=== PATIENT | female | born 1990 | race Caucasian/White ===

== ENCOUNTER 2019-03-04 05:40 | Inpatient (IN) | payer OTHER ==
[~2019-03-04] VITALS: Ht 154.9 cm; Wt 77.1 kg
[2019-03-04] MEDS: LACTATED RINGERS 1,000 ML IV SCH ×2 (07:45→10:45)
[2019-03-04] MEDS ORDERED: EPIDURAL KEYS MC ONE (07:59)
[2019-03-04] MEDS ORDERED: PROMETHAZINE 25 MG/ML VIAL IVP PRN (08:00)
[2019-03-04] MEDS ORDERED: NALBUPHINE 10 MG/ML AMP IVP PRN (08:00)
--- NOTE | 2019-03-04 08:41 | NUR ---
PATIENT HAS BEEN SCREENED AND CATEGORIZED LOW NUTRITION RISK. PATIENT WILL BE SEEN WITHIN 7 DAYS OF ADMISSION. 03/10/[address]
[2019-03-04 08:42] LABS: BASOPHILS % (AUTO) 0.3 % (0.0-2.0); EOSINOPHILS % (AUTO) 0.3 % (0.0-4.0); HEMATOCRIT 40.5 % (36-48); HEMOGLOBIN 13.5 g/dL (12.0-16.0); LYMPHOCYTES # (AUTO) 2.1 K/uL (2.5-16.5); MEAN CORPUSCULAR HEMOGLOBIN 30 pg (27-31); MEAN CORPUSCULAR HGB CONC 34 g/dL (33-37); MEAN CORPUSCULAR VOLUME 89.1 fL (80-94); MONOCYTES # (AUTO) 0.7 K/uL (0.8-1.0); NEUTROPHILS # (AUTO) 9.5 K/uL (1.8-7.7); NEUTROPHILS % (AUTO) 76.4 % (42.2-75.2); PLATELET COUNT (AUTO) 149 K/uL (140-450); RED BLOOD CELL COUNT(AUTO) 4.54 MIL/uL (4.20-5.40); RED CELL DISTRIBUTION WIDTH 13.7 % (11.6-13.7); WHITE BLOOD COUNT (AUTO) 12.4 K/uL (4.8-10.8)
[2019-03-04] MEDS ORDERED: OXYTOCIN 20 UNITS/LR PREMIX 1,000 ML IV ONE (08:53)
[2019-03-04] MEDS ORDERED: LIDOCAINE 1% 500 MG/50 ML VIAL ONE (08:55)
[2019-03-04 08:58] LABS: ALBUMIN 2.7 g/dL (3.4-5.0); ANION GAP 15.5 (8-16); CARBON DIOXIDE 25.3 mmol/L (21-32); CREATININE 0.6 mg/dL (0.6-1.3); POTASSIUM 3.8 mmol/L (3.5-5.1); TOTAL BILIRUBIN 0.2 mg/dL (0.0-1.0)
[2019-03-04] MEDS ORDERED: OXYTOCIN 20 UNITS in LACTATED RINGERS 1,000 ML IV SCH ×2 (09:00→19:41)
[2019-03-04] MEDS ORDERED: OXYTOCIN 10 UNITS/ML VIAL ONE (09:04)
[2019-03-04] MEDS ORDERED: OXYTOCIN 10 UNITS/ML VIAL IM SCH (09:30)
[2019-03-04 09:33] VITALS: BP 144/71
[2019-03-04 10:11] LABS: BILIRUBIN,URINE NEGATIVE (NEGATIVE); BLOOD, URINE NEGATIVE (NEGATIVE); COLOR,URINE YELLOW (YELLOW); LEUKOCYTE ESTERASE ,URINE NEGATIVE (NEGATIVE); NITRITE, URINE NEGATIVE (NEGATIVE); PH,URINE 7.5 (5.0-9.0); UGLUCOSE NEGATIVE (NEGATIVE)
[2019-03-04 10:34] LABS: APPEARANCE,URINE SLIGHTLY HAZY (CLEAR)
[2019-03-04 10:36] LABS: RBC,URINE 0-5 /HPF (0-5); WBC,URINE 0-5 /HPF (0-5)
[2019-03-04] MEDS ORDERED: BUPIVACAINE 0.125%/NS PREMIX 250 ML ONE (11:28)
[2019-03-04] MEDS ORDERED: MEASLES, MUMPS, AND RUBELLA 1 VIAL SQVAC PRN (19:45)
[2019-03-04] MEDS ORDERED: ACETAMINOPHEN 325 MG TAB PO PRN (19:45)
[2019-03-04] MEDS ORDERED: BISACODYL 5 MG TABEC PO PRN (19:45)
[2019-03-04] MEDS ORDERED: DOCUSATE SODIUM 100 MG GELCAP PO PRN (19:45)
[2019-03-04] MEDS: IBUPROFEN 600 MG TAB PO PRN (20:58)
[2019-03-05] MEDS: IBUPROFEN 600 MG TAB PO PRN ×2 (05:13→18:06)
[2019-03-05 08:29] LABS: BASOPHILS % (AUTO) 0.3 % (0.0-2.0); EOSINOPHILS # (AUTO) 0.1 K/uL (0-0.4); EOSINOPHILS % (AUTO) 0.4 % (0.0-4.0); HEMATOCRIT 37.7 % (36-48); HEMOGLOBIN 12.4 g/dL (12.0-16.0); LYMPHOCYTES # (AUTO) 2.6 K/uL (2.5-16.5); MEAN CORPUSCULAR HEMOGLOBIN 30 pg (27-31); MEAN CORPUSCULAR HGB CONC 33 g/dL (33-37); MEAN CORPUSCULAR VOLUME 90.7 fL (80-94); MONOCYTES % (AUTO) 7.9 % (1.7-9.3); NEUTROPHILS # (AUTO) 9.4 K/uL (1.8-7.7); NEUTROPHILS % (AUTO) 71.4 % (42.2-75.2); PLATELET COUNT (AUTO) 132 K/uL (140-450); RED BLOOD CELL COUNT(AUTO) 4.15 MIL/uL (4.20-5.40); RED CELL DISTRIBUTION WIDTH 14.2 % (11.6-13.7); WHITE BLOOD COUNT (AUTO) 13.2 K/uL (4.8-10.8)
[2019-03-06] MEDS: IBUPROFEN 600 MG TAB PO PRN (02:42)
[2019-03-06] MEDS ORDERED: FERR325E14 PO (09:42)
[2019-03-06] MEDS ORDERED: ACET-2619 PO (09:43)
== END 2019-03-06 14:32 | disposition home or self-care (01) | DRG 560 ==
LOC: UNDOADMIN 05:40 → MLD 05:40 → MFCC 16:45
PROVIDERS: ADMIT Obstetrics & Gynecology; ATTEND Obstetrics & Gynecology
PROC: 10E0XZZ Delivery of Products of Conception, External Approach (ICD-10-PCS; principal; 2019-03-04)
PROC: 10907ZC Drainage of Amniotic Fluid, Therapeutic from Products of Conception, Via Natural or Artificial Opening (ICD-10-PCS; 2019-03-04)
PROC: 3E0R3BZ Introduction of Anesthetic Agent into Spinal Canal, Percutaneous Approach (ICD-10-PCS; 2019-03-04)
PROC: 00HU33Z Insertion of Infusion Device into Spinal Canal, Percutaneous Approach (ICD-10-PCS; 2019-03-04)
PROC: 3E0234Z Introduction of Serum, Toxoid and Vaccine into Muscle, Percutaneous Approach (ICD-10-PCS; 2019-03-04)
PROC: 3E0134Z Introduction of Serum, Toxoid and Vaccine into Subcutaneous Tissue, Percutaneous Approach (ICD-10-PCS; 2019-03-04)
DX: O80 Encounter for full-term uncomplicated delivery (principal); Z23 Encounter for immunization; Z37.0 Single live birth; Z3A.38 38 weeks gestation of pregnancy
CPT/HCPCS: 36415; 51702; 59409; 76815; 80053; 81001; 85025; 86592; 86886; 86900; 86901; J2001; J2300; J2550; J2590; J3490; J7120; Q0092